=== PATIENT | female | born 1990 | race Two or more races ===

== ENCOUNTER 2016-04-15 20:04 | Emergency (ER) | payer OTHER ==
--- NOTE | 2016-04-15 20:33 | UCPHY ---
H & P Patient Type: New HPI/ROS: CHIEF COMPLAINT: Vomiting, diarrhea, fever. HISTORY OF PRESENT ILLNESS: The patient is a 25-year-old female presenting with vomiting x2 and diarrhea x2 since 0500 this morning. At that time she had a bowel movement. It was initially solid but then she developed abdominal pain and the stool turned into diarrhea, without blood. She has had continued generalized, moderate abdominal pain since then. The pain is described as "getting hit by a bus." Pain is steady rather than cyclical. It is throughout the entire abdomen most predominantly across the mid section as well as on the umbilicus area, not so much more on the right or left for that matter. It does not seem to be worse with into ago p.o. fluids, though the vomiting certainly was flared by her taking the pop tart as noted below. She was initially unable to tolerate PO liquids or foods but was able to keep a pop tart and sprite down in the afternoon. She admits recent sick contact with her coworkers who have similar symptoms. She works as a [employer] and there has been multiple coworkers REVIEW OF SYSTEMS: Constitutional: No fever, though she has had some chills. Eyes: No diplopia. ENT: No sore throat. Gastrointestinal: As above. Genitourinary: No hematuria or frequency. Musculoskeletal: The above abdominal pain does tend road around to the back, both sides. Skin: No rashes. Past Medical/Surgical History: Denies. Social History: Here with friend, nonsmoker. Physical Exam: General Appearance: Alert, no distress. Afebrile. Normal phonation. No respiratory distress. Eyes: Pupils equal and round no pallor or injection. No icterus ENT, Mouth: Mucous membranes moist. Pharynx not erythematous and without exudate. TM Clear. Neck: No adenopathy. Supple. No JVD. Trachea in midline. Respiratory: There is no respiratory distress. She is able to speak in full sentences. Abdomen: Soft no masses, bowel sounds normal. There is diffuse tenderness in all 4 quadrants but no rebound or guarding Neurological: Ox3. No motor weakness. Sensation intact. Skin: Warm and dry, no rashes. Musculoskeletal: No joint swelling. Extremities: No edema. Homans sign negative. No cords. Psychiatric: Normal affect Constitutional: Initial Vital Signs Temperature (C) 37 C 04/15/16 20:33 Heart Rate 95 03/03/17 20:33 Respiratory Rate 18 04/15/16 20:33 Blood Pressure 120/63 04/15/16 20:33 O2 Sat (%) 96 04/15/16 20:33 O2 Delivery Mode Room Air Allergies/Adverse Reactions: No Known Allergies Allergy (Unverified 04/15/16 20:33) Home Medications: Medication Instructions Recorded NK [No Known Home Meds] 04/15/16 Medical Decision Making ED Course/Re-evaluation: I offered the patient course of IV therapy as she has had really very no intake since 24 hours ago. However, she does not have any dark urine or feeling faint. I have recommended that she have IV therapy as well as IV Zofran, as she will feel somewhat better. However, she has declined. She will be returning tomorrow morning if illness has not run its course by then Differential Diagnosis: Differential diagnosis includes, but is not limited to: Gastroenteritis, dehydration, diverticulitis, hepatitis, cholecystitis, appendicitis, gastritis, mesenteric adenitis, food poisoning, bacterial dysentery - Data Points Laboratory Results: 04/15/16 20:30 Influenza Typ A,B (DFA) NEGATIVE FOR FLU (NEGATIVE) Medications Given: Discontinued Medications Ondansetron HCl (Zofran Odt 4 Mg Prepack#2) 1 btl TAKEHOME EDNOW ONE Stop: 04/15/16 21:02 Last Admin: 04/15/16 21:29 Dose: 1 btl Departure - Departure Disposition: Home, Routine, Self-Care Clinical Impression: Viral gastroenteritis Condition: Good Instructions: Ondansetron (By mouth), Gastroenteritis (ED) Additional Instructions: Advance your diet slowly over the next 24 hours. Begin with clear fluids and broth, then move on to bland foods such as toast, bananas, rice, applesauce, etc. Take Zofran 1 pill every 4-6 hours as needed for nausea. If your still sick by morning, you need to come back for IV therapy Follow up with your primary care provider in the next 3-4 days if symptoms are not improving. If you need a primary care provider you have been given the telephone number of the on-call outpatient doctor. Return for any serious worsening of condition. Referrals: Zeus Kolb MD [Medical Doctor] - As per Instructions Stand Alone Forms: Work Excuse - PQRS PQRS Measurement: Not applicable. Report Scribed for: George Diop Report Scribed by: Baron Han Date of Report: 04/15/16 Time of Report: 20:33 Physician Review and Approval Statement: 04/15/16 20:33 Portions of this note were transcribed by a medical program specialist. I personally performed a history, physical exam, medical decision making, and confirmed accuracy of information the transcribed note.
[2016-04-15 20:35] VITALS: BP 120/63; PULSE 95; RESP 18; TEMP 98.6; O2SAT 96
[2016-04-15] MEDS ORDERED: ONDANSETRON 4MG PREPACK#2 BTL TAKEHOME ONE (21:01)
== END 2016-04-15 21:36 | disposition home or self-care (01) ==
LOC: CED 20:04
DX: A08.4 Viral intestinal infection, unspecified (principal)
CPT/HCPCS: 87400-PO; G0463-PO